=== PATIENT | female | born 1945 | race Caucasian/White ===

== ENCOUNTER → 2016-12-13 | Outpatient (CLI) | payer OTHER, MEDICARE | LOC: FIMAGING 11:07 | DX: Z12.31 Encounter for screening mammogram for malignant neoplasm of breast (principal); Z80.3 Family history of malignant neoplasm of breast | CPT/HCPCS: G0202 ==

== ENCOUNTER → 2017-02-27 | Outpatient (CLI) | payer OTHER, MEDICARE | LOC: FIMAGING 12:50 | PROVIDERS: ATTEND Physician Assistant | DX: Z13.820 Encounter for screening for osteoporosis (principal); M85.80 Other specified disorders of bone density and structure, unspecified site ==

== ENCOUNTER → 2017-03-21 | Outpatient (CLI) | payer OTHER, MEDICARE | LOC: BHFA 15:30 | PROVIDERS: ATTEND Internal Medicine Cardiovascular Disease | DX: I34.0 Nonrheumatic mitral (valve) insufficiency (principal) ==

== ENCOUNTER → 2018-04-08 | Outpatient (CLI) | payer OTHER, MEDICARE | LOC: BHFA 10:00 | PROVIDERS: ATTEND Internal Medicine Cardiovascular Disease | DX: I34.1 Nonrheumatic mitral (valve) prolapse (principal) ==

== ENCOUNTER → 2018-10-24 | Outpatient (CLI) | payer OTHER, MEDICARE | LOC: BHFA 10:45 | PROVIDERS: ATTEND Internal Medicine Interventional Cardiology | DX: R09.89 Other specified symptoms and signs involving the circulatory and respiratory systems (principal) ==

== ENCOUNTER → 2019-02-04 | Outpatient (CLI) | payer OTHER, MEDICARE | LOC: FIMAGING 10:26 | PROVIDERS: ATTEND Physician Assistant | DX: Z12.31 Encounter for screening mammogram for malignant neoplasm of breast (principal); Z85.3 Personal history of malignant neoplasm of breast ==

== ENCOUNTER → 2019-03-04 | Outpatient (CLI) | payer OTHER, MEDICARE | LOC: FIMAGING 10:17 | PROVIDERS: ATTEND Physician Assistant | DX: Z13.820 Encounter for screening for osteoporosis (principal); M85.89 Other specified disorders of bone density and structure, multiple sites; Z78.0 Asymptomatic menopausal state ==